=== PATIENT | male | born 1940 | race Two or more races ===

== ENCOUNTER → 2016-09-24 | Outpatient (CLI) | payer MEDICARE, MEDICAID ==
[~2016-09-24] MED LIST: AMLO2.5T PO; ASPI-51 PO; BENA20TA PO; CHOL20009 PO; CILO100T PO; FLUT500M2 IN; SIMV40TA96 PO; TAMS0.4C36 PO
== END | disposition home or self-care (01) ==
LOC: Rad HDHVI 09:49
PROVIDERS: ATTEND Internal Medicine Cardiovascular Disease
DX: I50.9 Heart failure, unspecified (principal); I34.2 Nonrheumatic mitral (valve) stenosis; I35.0 Nonrheumatic aortic (valve) stenosis; I34.0 Nonrheumatic mitral (valve) insufficiency; I07.1 Rheumatic tricuspid insufficiency
CPT/HCPCS: 93306

== ENCOUNTER → 2016-10-02 | Outpatient (CLI) | payer MEDICARE, MEDICAID | END | disposition home or self-care (01) | LOC: Rad HDHVI 09:05 | PROVIDERS: ATTEND Internal Medicine Cardiovascular Disease | DX: I11.0 Hypertensive heart disease with heart failure (principal); I35.0 Nonrheumatic aortic (valve) stenosis; I50.9 Heart failure, unspecified; R06.01 Orthopnea | CPT/HCPCS: 93880 ==

== ENCOUNTER → 2016-12-10 | Outpatient (CLI) | payer MEDICARE, MEDICAID ==
[2016-12-10 16:04] LABS: Urine Bilirubin Negative (Negative); Urine Blood Negative /uL (Negative); Urine Color Yellow (Yellow); Urine Glucose Normal (Normal); Urine Ketone Negative (Negative); Urine Nitrite Negative (Negative); Urine Urobilinogen Normal (Negative)
[2016-12-10 16:30] LABS: Albumin 3.9 g/dL (3.4-5.0); BUN/Creatinine Ratio 14.3; Bilirubin, Direct 0.2 mg/dL (0-0.2); Bilirubin, Total 0.7 mg/dL (0.2-1.0); Calcium 9.1 mg/dL (8.5-10.1); Potassium 4.1 mmol/L (3.5-5.1); Total Protein 8.5 g/dL (6.4-8.2)
[2016-12-10 16:32] LABS: Basophils # (auto) 0 uL; Basophils % (auto) 0.5 % (0.0-2.0); Eosinophils # (auto) 0.2 uL; Eosinophils % (auto) 2.9 % (0.0-7.0); Hematocrit 45.6 % (41.0-53.0); Lymphocytes # (auto) 1.4 uL; Lymphocytes % (auto) 20.9 % (10.0-50.0); Mean Corpuscular Hemoglobin 32.1 pg (28.0-32.0); Mean Corpuscular Volume 97.3 fL (80.0-100.0); Mean Platelet Volume 8.3 fL (7.4-10.4); Monocytes # (auto) 0.4 uL; Monocytes % (auto) 6.6 % (0.0-12.0); Neutrophils # (auto) 4.5 uL; Neutrophils % (auto) 69.1 % (37.0-80.0); Platelet Count (auto) 212 10^3/uL (140-450); Red Cell Distribution Width 14.1 % (11.6-16.0); White Blood Cell 6.5 10^3/uL (4.4-10.8)
== END | disposition home or self-care (01) ==
LOC: LAB 10:46
PROVIDERS: ATTEND Internal Medicine Cardiovascular Disease
DX: E78.00 Pure hypercholesterolemia, unspecified (principal); D64.9 Anemia, unspecified; I10 Essential (primary) hypertension; E03.9 Hypothyroidism, unspecified; E55.9 Vitamin D deficiency, unspecified; R53.81 Other malaise; R97.20 Elevated prostate specific antigen [PSA]; K74.1 Hepatic sclerosis; E11.9 Type 2 diabetes mellitus without complications; N39.0 Urinary tract infection, site not specified
CPT/HCPCS: 36415; 80048; 80061; 80076; 81003; 82306; 83036; 84153; 84403; 84443; 85025

== ENCOUNTER → 2016-12-16 | Outpatient (CLI) | payer MEDICARE, MEDICAID ==
[~2016-12-16] MED LIST changes: +IOHEXOL 350 MG/ML 100ML IJ ONE
[2016-12-16 09:05] VITALS: BP 148/69
[2016-12-16 09:35] VITALS: BP 147/63
== END | disposition home or self-care (01) ==
LOC: Rad HDHVI 08:37
PROVIDERS: ATTEND Internal Medicine Cardiovascular Disease
DX: I70.201 Unspecified atherosclerosis of native arteries of extremities, right leg (principal); K86.89 Other specified diseases of pancreas; K42.9 Umbilical hernia without obstruction or gangrene; K57.30 Diverticulosis of large intestine without perforation or abscess without bleeding; I71.4 Abdominal aortic aneurysm, without rupture; K44.9 Diaphragmatic hernia without obstruction or gangrene; Z90.89 Acquired absence of other organs
CPT/HCPCS: 75635; 96374; G0463; Q9967

== ENCOUNTER → 2017-01-20 | Outpatient (CLI) | payer MEDICARE, MEDICAID ==
[~2017-01-20] VITALS: Ht 157.5 cm; Wt 76.7 kg
[~2017-01-20] MED LIST changes: +ADENOSINE 64 MG in GIVE UN-DILUTED 0 ML IV ONE; +ADENOSINE 90 MG/30 ML INJ IV ONE; -IOHEXOL 350 MG/ML 100ML IJ ONE
[2017-01-20 12:50] LABS: Basophils # (auto) 0 uL; Basophils % (auto) 0.4 % (0.0-2.0); Eosinophils # (auto) 0.3 uL; Eosinophils % (auto) 4.1 % (0.0-7.0); Hematocrit 41.3 % (41.0-53.0); Hemoglobin 13.7 g/dL (13.5-17.5); Lymphocytes # (auto) 1.6 uL; Lymphocytes % (auto) 20.3 % (10.0-50.0); Mean Corpuscular Hemoglobin 32.9 pg (28.0-32.0); Mean Corpuscular Hgb Conc. 33.1 g/dL (32.0-36.0); Mean Corpuscular Volume 99.4 fL (80.0-100.0); Mean Platelet Volume 7.8 fL (7.4-10.4); Monocytes # (auto) 0.6 uL; Monocytes % (auto) 7.5 % (0.0-12.0); Neutrophils # (auto) 5.3 uL; Neutrophils % (auto) 67.7 % (37.0-80.0); Platelet Count (auto) 285 10^3/uL (140-450); Red Cell Distribution Width 14.4 % (11.6-16.0); White Blood Cell 7.9 10^3/uL (4.4-10.8)
[2017-01-20 13:16] LABS: Urine Bilirubin Negative (Negative); Urine Blood Negative /uL (Negative); Urine Color Yellow (Yellow); Urine Glucose Normal (Normal); Urine Ketone Negative (Negative); Urine Nitrite Negative (Negative); Urine Urobilinogen Normal (Negative)
[2017-01-20 13:18] LABS: Albumin 3.4 g/dL (3.4-5.0); BUN/Creatinine Ratio 14.2; Bilirubin, Direct 0.1 mg/dL (0-0.2); Bilirubin, Total 0.6 mg/dL (0.2-1.0); Calcium 8.8 mg/dL (8.5-10.1); Potassium 4.1 mmol/L (3.5-5.1); Total Protein 7.1 g/dL (6.4-8.2)
== END | disposition home or self-care (01) ==
LOC: Rad HDHVI 07:39
PROVIDERS: ATTEND Internal Medicine Cardiovascular Disease
DX: I10 Essential (primary) hypertension (principal); E78.00 Pure hypercholesterolemia, unspecified; K74.1 Hepatic sclerosis; E11.9 Type 2 diabetes mellitus without complications; R97.20 Elevated prostate specific antigen [PSA]; R53.81 Other malaise; E03.9 Hypothyroidism, unspecified; D64.9 Anemia, unspecified; E55.9 Vitamin D deficiency, unspecified; N39.0 Urinary tract infection, site not specified
CPT/HCPCS: 36415; 78452; 80048; 80061; 80076; 81003; 82306; 83036; 84153; 84403; 84443; 85025; 93005; 96374; 96375; J0153

== ENCOUNTER → 2017-02-24 | Outpatient (CLI) | payer MEDICARE, MEDICAID ==
[~2017-02-24] MED LIST changes: -ADENOSINE 64 MG in GIVE UN-DILUTED 0 ML IV ONE; -ADENOSINE 90 MG/30 ML INJ IV ONE
[2017-02-24 16:21] LABS: Basophils # (auto) 0 uL; Basophils % (auto) 0.3 % (0.0-2.0); CONDITION Y; Eosinophils # (auto) 0.2 uL; Eosinophils % (auto) 1.2 % (0.0-7.0); Hematocrit 42.5 % (41.0-53.0); Hemoglobin 14.6 g/dL (13.5-17.5); Lymphocytes # (auto) 1.9 uL; Lymphocytes % (auto) 14.2 % (10.0-50.0); Mean Corpuscular Hemoglobin 34.1 pg (28.0-32.0); Mean Corpuscular Hgb Conc. 34.5 g/dL (32.0-36.0); Mean Corpuscular Volume 98.8 fL (80.0-100.0); Mean Platelet Volume 8.1 fL (7.4-10.4); Monocytes # (auto) 1.2 uL; Monocytes % (auto) 8.9 % (0.0-12.0); Neutrophils # (auto) 10.3 uL; Neutrophils % (auto) 75.4 % (37.0-80.0); Platelet Count (auto) 228 10^3/uL (140-450); Red Cell Distribution Width 14.6 % (11.6-16.0); White Blood Cell 13.7 10^3/uL (4.4-10.8)
[2017-02-24 16:52] LABS: Calcium 8.9 mg/dL (8.5-10.1); Potassium 4.9 mmol/L (3.5-5.1)
== END | disposition home or self-care (01) ==
LOC: LAB 12:02
PROVIDERS: ATTEND Internal Medicine Cardiovascular Disease
DX: I10 Essential (primary) hypertension (principal); I25.10 Atherosclerotic heart disease of native coronary artery without angina pectoris; D64.9 Anemia, unspecified; N39.0 Urinary tract infection, site not specified; R07.0 Pain in throat; R79.82 Elevated C-reactive protein (CRP)
CPT/HCPCS: 36415; 80048; 85025; 86141; 87070; 87086

== ENCOUNTER → 2017-04-15 | Outpatient (CLI) | payer MEDICARE, MEDICAID ==
[2017-04-15 16:57] LABS: BUN/Creatinine Ratio 18.4; Calcium 8.7 mg/dL (8.5-10.1); Potassium 4.5 mmol/L (3.5-5.1)
== END | disposition home or self-care (01) ==
LOC: Rad HDHVI 10:20
PROVIDERS: ATTEND Internal Medicine Cardiovascular Disease
DX: I10 Essential (primary) hypertension (principal); I49.5 Sick sinus syndrome
CPT/HCPCS: 36415; 80048; 93880

== ENCOUNTER → 2017-05-08 | Outpatient (CLI) | payer MEDICARE, MEDICAID ==
[~2017-05-08] MED LIST changes: +IOHEXOL 350 MG/ML 100ML IJ ONE
[2017-05-08 08:45] VITALS: BP 133/61
[2017-05-08 09:20] VITALS: BP 135/60
== END ==
LOC: Rad HDHVI 08:32
PROVIDERS: ATTEND Internal Medicine Cardiovascular Disease
DX: I71.4 Abdominal aortic aneurysm, without rupture (principal)
CPT/HCPCS: 82565; 96374; G0463; Q9967

== ENCOUNTER → 2017-10-09 | Outpatient (CLI) | payer MEDICARE, MEDICAID ==
[~2017-10-09] MED LIST changes: +ADENOSINE 64 MG in GIVE UN-DILUTED 0 ML IV ONE; +ADENOSINE 90 MG/30 ML INJ IV ONE; -IOHEXOL 350 MG/ML 100ML IJ ONE
[2017-10-09 12:34] LABS: Basophils # (auto) 0 uL; Basophils % (auto) 0.7 % (0.0-2.0); Eosinophils # (auto) 0.2 uL; Eosinophils % (auto) 3.2 % (0.0-7.0); Hematocrit 42.5 % (41.0-53.0); Hemoglobin 14.1 g/dL (13.5-17.5); Lymphocytes # (auto) 1.4 uL; Lymphocytes % (auto) 22.1 % (10.0-50.0); Mean Corpuscular Hemoglobin 32.1 pg (28.0-32.0); Mean Corpuscular Hgb Conc. 33.3 g/dL (32.0-36.0); Mean Corpuscular Volume 96.6 fL (80.0-100.0); Monocytes # (auto) 0.7 uL; Monocytes % (auto) 10.2 % (0.0-12.0); Neutrophils # (auto) 4.1 uL; Neutrophils % (auto) 63.8 % (37.0-80.0); Nucleated Red Blood Cells % 0.8 %; Platelet Count (auto) 191 10^3/uL (140-450); Red Cell Distribution Width 13.2 % (11.8-14.3); White Blood Cell 6.4 10^3/uL (4.4-10.8)
[2017-10-09 12:44] LABS: Urine Blood Negative /uL (Negative); Urine Specific Gravity 1.018 (1.001-1.035)
[2017-10-09 13:35] LABS: Albumin 3.5 g/dL (3.4-5.0); BUN/Creatinine Ratio 16.1; Bilirubin, Total 0.6 mg/dL (0.2-1.0); Calcium 9.2 mg/dL (8.5-10.1); Potassium 4.3 mmol/L (3.5-5.1); Total Protein 7.8 g/dL (6.4-8.2)
[2017-10-09 20:26] LABS: Free T4 (Free Thyroxine) 1.01 ng/dL (0.89-1.76)
== END | disposition home or self-care (01) ==
LOC: Rad HDHVI 07:56
PROVIDERS: ATTEND Internal Medicine Cardiovascular Disease
DX: I25.10 Atherosclerotic heart disease of native coronary artery without angina pectoris (principal); I71.4 Abdominal aortic aneurysm, without rupture; I10 Essential (primary) hypertension; E78.5 Hyperlipidemia, unspecified; E78.00 Pure hypercholesterolemia, unspecified; D64.9 Anemia, unspecified; E11.9 Type 2 diabetes mellitus without complications; E03.9 Hypothyroidism, unspecified; E55.9 Vitamin D deficiency, unspecified; D51.9 Vitamin B12 deficiency anemia, unspecified; N39.0 Urinary tract infection, site not specified; R53.81 Other malaise; R97.20 Elevated prostate specific antigen [PSA]; Z79.899 Other long term (current) drug therapy
CPT/HCPCS: 36415; 78452; 80053; 80061; 81003; 82306; 82607; 83036; 84403; 84439; 84443; 85025; 93005; 96374; 96375; A9500; J0153

== ENCOUNTER → 2017-10-13 | Outpatient (CLI) | payer MEDICARE, MEDICAID ==
[~2017-10-13] MED LIST changes: -ADENOSINE 64 MG in GIVE UN-DILUTED 0 ML IV ONE; -ADENOSINE 90 MG/30 ML INJ IV ONE
== END | disposition home or self-care (01) ==
LOC: Rad HDHVI 12:48
PROVIDERS: ATTEND Internal Medicine Cardiovascular Disease
DX: I08.0 Rheumatic disorders of both mitral and aortic valves (principal); I25.10 Atherosclerotic heart disease of native coronary artery without angina pectoris; I10 Essential (primary) hypertension
CPT/HCPCS: 93306

== ENCOUNTER → 2018-03-31 | Outpatient (CLI) | payer MEDICARE, MEDICAID ==
[~2018-03-31] MED LIST changes: +CLOP75TA28 PO
[2018-03-31 08:50] VITALS: BP 115/63
[2018-03-31 09:25] VITALS: BP 120/63
[2018-03-31 11:53] LABS: Basophils # (auto) 0 uL; Basophils % (auto) 0.7 % (0.0-2.0); Eosinophils # (auto) 0.2 uL; Eosinophils % (auto) 2.9 % (0.0-7.0); Hematocrit 40.3 % (41.0-53.0); Hemoglobin 13.5 g/dL (13.5-17.5); Lymphocytes # (auto) 1.4 uL; Lymphocytes % (auto) 22.6 % (10.0-50.0); Mean Corpuscular Hemoglobin 32.6 pg (28.0-32.0); Mean Corpuscular Hgb Conc. 33.4 g/dL (32.0-36.0); Mean Corpuscular Volume 97.8 fL (80.0-100.0); Monocytes # (auto) 0.5 uL; Monocytes % (auto) 8.3 % (0.0-12.0); Neutrophils # (auto) 4.1 uL; Neutrophils % (auto) 65.5 % (37.0-80.0); Platelet Count (auto) 186 10^3/uL (140-450); Red Blood Cells 4.12 10^6/uL (4.5-5.90); Red Cell Distribution Width 13.8 % (11.8-14.3); White Blood Cell 6.3 10^3/uL (4.4-10.8)
[2018-03-31 12:14] LABS: BUN/Creatinine Ratio 20.3; Calcium 8.6 mg/dL (8.5-10.1); Potassium 4.2 mmol/L (3.5-5.1)
[2018-03-31 12:51] LABS: INR 1.01 (0.9-1.15); Partial Thromboplastin Time 31.6 sec (23.78-33.04); Prothrombin Time 10.8 sec (9.27-12.13)
== END | disposition home or self-care (01) ==
LOC: CHF HDHVI 08:30
PROVIDERS: ATTEND Internal Medicine
DX: I71.4 Abdominal aortic aneurysm, without rupture (principal); J44.9 Chronic obstructive pulmonary disease, unspecified
CPT/HCPCS: 36415; 80048; 85025; 85610; 85730; 86850; 86900; 86901; 93005; G0463

== ENCOUNTER 2018-04-03 10:56 | Inpatient (IN) | payer MEDICARE, MEDICAID ==
[~2018-04-03] VITALS: Ht 170.2 cm; Wt 73.0 kg
[2018-04-03] VITALS (18 sets, daily range): BP systolic 94–129; BP diastolic 38–60
[~2018-04-03 10:56] MED LIST changes: -CLOP75TA28 PO
[2018-04-03] MEDS ORDERED: LIDOCAINE 2%HCL (LOCAL ANESTH.) INJ 10ml MDV ONE (12:28)
[2018-04-03] MEDS ORDERED: IODIXANOL 320MG/ML 100ML BTL IV ONE (12:28)
[2018-04-03] MEDS ORDERED: ANGIOMAX 250 MG VIAL IV ONE (15:04)
[2018-04-03] MEDS ORDERED: PHENYLEPHRINE HCL 10 MG/ML VL ONE (15:04)
[2018-04-03] MEDS ORDERED: fentaNYL CITRATE 100 MCG/2 ML VL ONE (15:05)
[2018-04-03] MEDS ORDERED: MIDAZOLAM HCL 1MG/1ML-2 ML VIAL ONE (15:05)
[2018-04-03] MEDS ORDERED: ATROPINE SULF 1 MG/10ml SYR ONE (15:05)
[2018-04-03] MEDS ORDERED: SODIUM CHL 0.9% 50 ML ONE (15:05)
[2018-04-03] MEDS ORDERED: DOPamine 3200MCG/ML 250 ML IV ONE (15:15)
[2018-04-03] MEDS ORDERED: LIDOCAINE 2% (LOCAL ANESTH.) PF 5ml SDV ONE (15:20)
[2018-04-03] MEDS ORDERED: HEPARIN SODIUM (PORCINE) 5000 UNITS/ML 1ML VIAL ONE ×2 (15:29→15:50)
[2018-04-03] MEDS ORDERED: ACETAMINOPHEN 500 MG TAB PO PRN (17:15)
[2018-04-03] MEDS ORDERED: LORazepam 0.5 MG TAB PO PRN (17:15)
[2018-04-03] MEDS ORDERED: MORPHINE SULF INJ 2 MG/ML SYRINGE 1ML IV PRN (17:15)
[2018-04-03] MEDS ORDERED: HYDROcodone-ACET 5/325MG TAB PO PRN (17:15)
[2018-04-03] MEDS ORDERED: NITROGLYCERIN 0.4 MG SL TAB SL PRN (17:15)
[2018-04-03] MEDS ORDERED: ONDANSETRON HCL 4 MG/2 ML VIAL IV PRN (17:15)
[2018-04-03] MEDS ORDERED: ZOLPIDEM TARTRATE 5 MG TAB PO PRN (17:15)
[2018-04-03] MEDS: CHOLECALCIFEROL (VITD3) 1,000 UNIT TAB PO SCH (17:30)
[2018-04-03] MEDS: BENAZEPRIL HCL 10 MG TAB PO SCH (17:30)
[2018-04-03] MEDS ORDERED: CLOPIDOGREL BISULFATE 75 MG TAB PO ONE ×2 (17:30→17:45)
[2018-04-03] MEDS ORDERED: CHOLECALCIFEROL (VITD3) 1,000 UNIT TAB PO ONE (17:45)
[2018-04-03] MEDS ORDERED: BENAZEPRIL HCL 10 MG TAB PO ONE (17:45)
[2018-04-03] MEDS ORDERED: ASPirin-EC 325mg tab PO ONE (17:45)
[2018-04-03] MEDS ORDERED: CILOSTAZOL 100 MG TAB PO ONE (17:45)
[2018-04-03] MEDS ORDERED: TAMSULOSIN HYDROCHLORIDE 0.4 MG CAP PO ONE (17:45)
[2018-04-03] MEDS ORDERED: amLODIPine BESYLATE 5 MG TAB PO ONE (17:45)
[2018-04-03] MEDS: CILOSTAZOL 100 MG TAB PO SCH (22:00)
[2018-04-03] MEDS: SODIUM CHLOR 0.9% PF (SALINE LOCK) 10ML VIAL/SYR IV SCH (22:00)
[2018-04-03] MEDS ORDERED: ATORVASTATIN 20 MG TAB PO SCH (22:00)
[2018-04-04] VITALS (28 sets, daily range): BP systolic 89–127; BP diastolic 33–56
[2018-04-04] MEDS: ALBUTEROL SULF 2.5 MG/0.5ML(0.5%) NEB SOLN NEB SCH ×3 (00:41→12:24)
[2018-04-04] MEDS: BUDESONIDE (INHALATION) 0.5 MG/2 ML NEB NEB SCH ×2 (00:41→06:05)
[2018-04-04 08:27] LABS: Basophils # (auto) 0 uL; Basophils % (auto) 0.3 % (0.0-2.0); Eosinophils # (auto) 0.1 uL; Hematocrit 34.2 % (41.0-53.0); Hemoglobin 11.5 g/dL (13.5-17.5); Lymphocytes % (auto) 13.5 % (10.0-50.0); Mean Corpuscular Hemoglobin 32.9 pg (28.0-32.0); Mean Corpuscular Hgb Conc. 33.5 g/dL (32.0-36.0); Mean Corpuscular Volume 98.2 fL (80.0-100.0); Monocytes # (auto) 0.8 uL; Monocytes % (auto) 10.4 % (0.0-12.0); Neutrophils # (auto) 5.4 uL; Neutrophils % (auto) 74.8 % (37.0-80.0); Nucleated Red Blood Cells % 0.1 %; Platelet Count (auto) 140 10^3/uL (140-450); Red Blood Cells 3.48 10^6/uL (4.5-5.90); Red Cell Distribution Width 14.2 % (11.8-14.3); White Blood Cell 7.2 10^3/uL (4.4-10.8)
[2018-04-04] MEDS ORDERED: ASPirin-EC 325mg tab PO SCH (10:00)
[2018-04-04] MEDS ORDERED: CLOPIDOGREL BISULFATE 75 MG TAB PO SCH (10:00)
[2018-04-04] MEDS ORDERED: TAMSULOSIN HYDROCHLORIDE 0.4 MG CAP PO SCH (10:00)
[2018-04-04] MEDS ORDERED: amLODIPine BESYLATE 5 MG TAB PO SCH (10:00)
[2018-04-04] MEDS: BENAZEPRIL HCL 10 MG TAB PO SCH (10:00)
[2018-04-04] MEDS: SODIUM CHLOR 0.9% PF (SALINE LOCK) 10ML VIAL/SYR IV SCH ×2 (10:12→14:28)
[2018-04-04] MEDS: CILOSTAZOL 100 MG TAB PO SCH (10:20)
[2018-04-04] MEDS: CHOLECALCIFEROL (VITD3) 1,000 UNIT TAB PO SCH (10:20)
[2018-04-04] MEDS ORDERED: ASPirin 81 mg TAB PO SCH (11:00)
[2018-04-04] MEDS ORDERED: CLOP75TA28 PO ×2 (11:59→12:00)
== END 2018-04-04 15:05 | disposition home or self-care (01) | DRG 269 ==
LOC: CATH 10:56 → ICU WEST 17:06
PROVIDERS: ADMIT Internal Medicine Cardiovascular Disease; ATTEND Internal Medicine Cardiovascular Disease
PROC: 04V03D6 (ICD-10-PCS; principal; 2018-04-03)
PROC: 04VC3DZ Restriction of Right Common Iliac Artery with Intraluminal Device, Percutaneous Approach (ICD-10-PCS; 2018-04-03)
PROC: 04VD3DZ Restriction of Left Common Iliac Artery with Intraluminal Device, Percutaneous Approach (ICD-10-PCS; 2018-04-03)
DX: I71.4 Abdominal aortic aneurysm, without rupture (principal); E78.5 Hyperlipidemia, unspecified; I73.9 Peripheral vascular disease, unspecified; I25.10 Atherosclerotic heart disease of native coronary artery without angina pectoris; I10 Essential (primary) hypertension; I70.90 Unspecified atherosclerosis; J44.9 Chronic obstructive pulmonary disease, unspecified; Z87.891 Personal history of nicotine dependence; Z95.1 Presence of aortocoronary bypass graft
CPT/HCPCS: 36415; 85025; 86850; 86900; 86901; 86920; 87081; 94640; 99152; A6257; J1265; J2001; J2250; Q9967

== ENCOUNTER → 2018-07-14 | Outpatient (CLI) | payer MEDICARE, MEDICAID ==
[~2018-07-14] MED LIST changes: -AMLO2.5T PO; +AMLO2.5T6 PO; +CLOP75TA28 PO; +IOHEXOL 350 MG/ML 100ML IJ ONE
[2018-07-14 08:57] VITALS: BP 126/59
[2018-07-14 09:35] VITALS: BP 122/61
== END | disposition home or self-care (01) ==
LOC: Rad HDHVI 08:46
PROVIDERS: ATTEND Internal Medicine
DX: I77.4 Celiac artery compression syndrome (principal); I71.4 Abdominal aortic aneurysm, without rupture; Z95.828 Presence of other vascular implants and grafts; R10.30 Lower abdominal pain, unspecified; I70.208 Unspecified atherosclerosis of native arteries of extremities, other extremity
CPT/HCPCS: 71275; 82565; G0463; Q9967

== ENCOUNTER → 2018-08-13 | Outpatient (CLI) | payer MEDICARE, MEDICAID ==
[~2018-08-13] MED LIST changes: -IOHEXOL 350 MG/ML 100ML IJ ONE
[2018-08-13 12:31] LABS: Urine Blood Negative /uL (Negative); Urine Specific Gravity 1.018 (1.001-1.035)
[2018-08-13 12:38] LABS: Basophils # (auto) 0 uL; Basophils % (auto) 0.4 % (0.0-2.0); Eosinophils # (auto) 0.3 uL; Eosinophils % (auto) 3.7 % (0.0-7.0); Hematocrit 42.8 % (41.0-53.0); Hemoglobin 14.2 g/dL (13.5-17.5); Lymphocytes # (auto) 1.9 uL; Lymphocytes % (auto) 27.4 % (10.0-50.0); Mean Corpuscular Hemoglobin 32.9 pg (28.0-32.0); Mean Corpuscular Hgb Conc. 33.1 g/dL (32.0-36.0); Mean Corpuscular Volume 99.3 fL (80.0-100.0); Monocytes # (auto) 0.7 uL; Monocytes % (auto) 9.8 % (0.0-12.0); Neutrophils % (auto) 58.7 % (37.0-80.0); Nucleated Red Blood Cells % 0.1 %; Platelet Count (auto) 178 10^3/uL (140-450); Red Blood Cells 4.31 10^6/uL (4.5-5.90); Red Cell Distribution Width 14.3 % (11.8-14.3); White Blood Cell 6.9 10^3/uL (4.4-10.8)
[2018-08-13 13:23] LABS: Potassium 4.5 mmol/L (3.5-5.1)
[2018-08-13 13:31] LABS: Free T4 (Free Thyroxine) 0.96 ng/dL (0.89-1.76); Prostate Specific Antigen 1.85 ng/mL (0.0-4.0)
[2018-08-13 13:42] LABS: Albumin 3.5 g/dL (3.4-5.0); BUN/Creatinine Ratio 17.2; Bilirubin, Total 0.7 mg/dL (0.2-1.0); Calcium 8.7 mg/dL (8.5-10.1); Total Protein 8.1 g/dL (6.4-8.2)
== END | disposition home or self-care (01) ==
LOC: LAB 08:48
PROVIDERS: ATTEND Internal Medicine Cardiovascular Disease
DX: E78.5 Hyperlipidemia, unspecified (principal); E03.9 Hypothyroidism, unspecified; E11.9 Type 2 diabetes mellitus without complications; E55.9 Vitamin D deficiency, unspecified; C61 Malignant neoplasm of prostate; D51.9 Vitamin B12 deficiency anemia, unspecified; D64.9 Anemia, unspecified; N39.0 Urinary tract infection, site not specified
CPT/HCPCS: 36415; 80053; 80061; 81003; 82306; 82607; 83036; 84153; 84403; 84439; 84443; 85025

== ENCOUNTER → 2018-08-14 | Outpatient (CLI) | payer MEDICARE, MEDICAID | END | disposition home or self-care (01) | LOC: Rad HDHVI 08:59 | PROVIDERS: ATTEND Internal Medicine | DX: M47.812 Spondylosis without myelopathy or radiculopathy, cervical region (principal); M19.011 Primary osteoarthritis, right shoulder | CPT/HCPCS: 72040; 73030 ==

== ENCOUNTER → 2019-03-08 | Outpatient (CLI) | payer MEDICARE, MEDICAID ==
[~2019-03-08] MED LIST changes: -AMLO2.5T6 PO; +AMLO2.5T7 PO
[2019-03-08 12:06] LABS: Urine Blood Negative /uL (Negative)
[2019-03-08 12:08] LABS: Basophils # (auto) 0.1 uL; Basophils % (auto) 0.8 % (0.0-2.0); Eosinophils # (auto) 0.2 uL; Eosinophils % (auto) 3.4 % (0.0-7.0); Hematocrit 41.6 % (41.0-53.0); Hemoglobin 13.9 g/dL (13.5-17.5); Lymphocytes # (auto) 1.8 uL; Mean Corpuscular Hgb Conc. 33.4 g/dL (32.0-36.0); Mean Corpuscular Volume 102.1 fL (80.0-100.0); Monocytes # (auto) 0.6 uL; Monocytes % (auto) 9.3 % (0.0-12.0); Neutrophils % (auto) 59.5 % (37.0-80.0); Nucleated Red Blood Cells % 0.2 %; Platelet Count (auto) 170 10^3/uL (140-450); Red Blood Cells 4.08 10^6/uL (4.5-5.90); White Blood Cell 6.8 10^3/uL (4.4-10.8)
[2019-03-08 12:23] LABS: Free T4 (Free Thyroxine) 0.8 ng/dL (0.89-1.76)
[2019-03-08 12:24] LABS: Prostate Specific Antigen 1.44 ng/mL (0.0-4.0)
[2019-03-08 12:28] LABS: Potassium 4.6 mmol/L (3.5-5.1)
[2019-03-08 12:52] LABS: Albumin 3.4 g/dL (3.4-5.0); BUN/Creatinine Ratio 19.4; Bilirubin, Total 0.7 mg/dL (0.2-1.0); Calcium 8.9 mg/dL (8.5-10.1); Total Protein 8.2 g/dL (6.4-8.2)
== END | disposition home or self-care (01) ==
LOC: Rad HDHVI 08:07
PROVIDERS: ATTEND Internal Medicine
DX: I08.2 Rheumatic disorders of both aortic and tricuspid valves (principal); E03.9 Hypothyroidism, unspecified; E55.9 Vitamin D deficiency, unspecified; C61 Malignant neoplasm of prostate; E29.1 Testicular hypofunction; N39.0 Urinary tract infection, site not specified; D51.9 Vitamin B12 deficiency anemia, unspecified; R09.89 Other specified symptoms and signs involving the circulatory and respiratory systems; I10 Essential (primary) hypertension; Z79.899 Other long term (current) drug therapy
CPT/HCPCS: 36415; 80053; 80061; 81003; 82306; 82607; 83036; 84153; 84403; 84439; 84443; 85025; 93306; 93880

== ENCOUNTER → 2019-06-22 | Outpatient (CLI) | payer MEDICARE, MEDICAID ==
[~2019-06-22] MED LIST changes: +IOHEXOL 350 MG/ML 100ML IJ ONE
[2019-06-22 11:45] VITALS: BP 131/59
[2019-06-22 13:55] VITALS: BP 133/56
--- NOTE | 2019-06-22 13:55 | NUR ---
[facility] Discharge Instructions See e-MAR for any mediations given with this visit. Patient education given on disease process. Patient verbalized understanding. Previous labs reviewed. Patient discharged in stable condition with after care instructions and follow up appointment. NOTE PATIENT EDUCATED TO DRINK PLENTY OF FLUIDS OVER THE NEXT 24 HRS, PATIENT VERBALIZED UNDERSTANDING.
== END | disposition home or self-care (01) ==
LOC: Rad HDHVI 11:31
PROVIDERS: ATTEND Internal Medicine
DX: R91.1 Solitary pulmonary nodule (principal); R94.4 Abnormal results of kidney function studies; R05 Cough
CPT/HCPCS: 36415; 71260; 82565; 87070; 87077; 87186; 87205; G0463; Q9967

== ENCOUNTER → 2019-09-16 | Outpatient (CLI) | payer MEDICARE, MEDICAID ==
[~2019-09-16] MED LIST changes: -IOHEXOL 350 MG/ML 100ML IJ ONE
== END | disposition home or self-care (01) ==
LOC: LAB 11:06
PROVIDERS: ATTEND Internal Medicine
DX: R94.4 Abnormal results of kidney function studies (principal)
CPT/HCPCS: 36415; 82565

== ENCOUNTER → 2019-09-17 | Outpatient (CLI) | payer MEDICARE, MEDICAID ==
[~2019-09-17] MED LIST changes: +IOHEXOL 350 MG/ML 100ML IJ ONE
[2019-09-17 08:10] VITALS: BP 123/54
--- NOTE | 2019-09-17 08:25 | NUR ---
IV insertion IV access obtained, via clean sterile technique by inserting [20] gauge catheter at [LEFT AC] after [1] attempt(s). IV secured properly. No trauma to site. Patient tolerated procedure well.
--- NOTE | 2019-09-17 09:30 | NUR ---
IV removal IV DC'd BY ROXANNE GARNETT with sterile technique, catheter fully intact. Pressure dressing applied to site. Patient tolerated procedure well.
[2019-09-17 09:35] VITALS: BP 127/46
--- NOTE | 2019-09-17 09:35 | NUR ---
[facility] Discharge Instructions See e-MAR for any mediations given with this visit. Patient education given on disease process. Patient verbalized understanding. Previous labs reviewed. Patient discharged in stable condition with after care instructions and follow up appointment. NOTES PT TOLERATED PROCEDURE/TEST WELL. PT EDUCATED INCREASE ORAL HYDRATION OVER THE NEXT 24 HOURS. PT VERBALIZED UNDERSTANDING.
== END | disposition home or self-care (01) ==
LOC: Rad HDHVI 08:31
PROVIDERS: ATTEND Internal Medicine
DX: J44.9 Chronic obstructive pulmonary disease, unspecified (principal); Z95.1 Presence of aortocoronary bypass graft
CPT/HCPCS: G0463; Q9967

== ENCOUNTER → 2019-09-27 | Outpatient (CLI) | payer MEDICARE, MEDICAID ==
[~2019-09-27] MED LIST changes: -IOHEXOL 350 MG/ML 100ML IJ ONE
== END | disposition home or self-care (01) ==
LOC: Rad HDHVI 09:37
PROVIDERS: ATTEND Internal Medicine Cardiovascular Disease
DX: I25.10 Atherosclerotic heart disease of native coronary artery without angina pectoris (principal); I10 Essential (primary) hypertension; R09.89 Other specified symptoms and signs involving the circulatory and respiratory systems
CPT/HCPCS: 93880

== ENCOUNTER 2019-11-27 09:55 | Inpatient (IN) | payer MEDICARE, MEDICAID ==
[~2019-11-27] VITALS: Ht 170.2 cm; Wt 77.0 kg
[2019-11-27] VITALS (19 sets, daily range): BP systolic 66–128; BP diastolic 30–71
[2019-11-27] MEDS ORDERED: SODIUM CHLORIDE 0.9% 1,000 ML IV ONE (10:33)
[2019-11-27] MEDS ORDERED: SODIUM CHLORIDE 0.9% 1,000 ML IVB ONE (10:33)
[2019-11-27] MEDS ORDERED: ALBUTEROL SULF 2.5 MG/0.5ML(0.5%) NEB SOLN NEB ONE (11:30)
[2019-11-27] MEDS ORDERED: IPRATROPIUM BROM 0.5 MG/2.5ML INH SOL NEB ONE (11:30)
[2019-11-27] MEDS ORDERED: cefTRIAXone 1GM/50ML D5W 50 ML IV ONE (11:45)
[2019-11-27] MEDS ORDERED: AZITHROMYCIN 500MG/ 250ML 250 ML IV ONE (11:45)
[2019-11-27] MEDS ORDERED: ACETAMINOPHEN 500 MG TAB PO ONE (12:00)
[2019-11-27 12:43] LABS: Basophils # (auto) 0 10 ^3/uL (0-0.2); Basophils % (auto) 0.1 % (0.0-2.0); Eosinophils # (auto) 0 10 ^3/uL (0-0.8); Eosinophils % (auto) 0.9 % (0.0-7.0); Hematocrit 34.4 % (41.0-53.0); Hemoglobin 11.5 g/dL (13.5-17.5); Lymphocytes # (auto) 0.1 10 ^3/uL (0.4-5.4); Lymphocytes % (auto) 39.8 % (10.0-50.0); Mean Corpuscular Hemoglobin 34.3 pg (28.0-32.0); Mean Corpuscular Hgb Conc. 33.5 g/dL (32.0-36.0); Mean Corpuscular Volume 102.5 fL (80.0-100.0); Monocytes # (auto) 0 10 ^3/uL (0-1.3); Monocytes % (auto) 2.9 % (0.0-12.0); Neutrophils # (auto) 0.2 10 ^3/uL (1.6-8.6); Neutrophils % (auto) 56.3 % (37.0-80.0); Nucleated Red Blood Cells % 1.6 %; Platelet Count (auto) 79 10^3/uL (140-450); Red Blood Cells 3.35 10^6/uL (4.5-5.90); Red Cell Distribution Width 13.7 % (11.8-14.3)
[2019-11-27 12:50] LABS: White Blood Cell 0.3 10^3/uL (4.4-10.8)
[2019-11-27 12:52] LABS: Albumin 2.5 g/dL (3.4-5.0); Calcium 6.7 mg/dL (8.5-10.1); Magnesium 1.5 mg/dL (1.6-2.6); Potassium 4.1 mmol/L (3.5-5.1)
[2019-11-27 12:58] LABS: BUN/Creatinine Ratio 19.3; Bilirubin, Total 1.5 mg/dL (0.2-1.0); Total Protein 5.8 g/dL (6.4-8.2)
[2019-11-27 13:09] LABS: INR 1.26 (0.9-1.15); Partial Thromboplastin Time 29.4 sec (23.64-32.05)
[2019-11-27 13:20] LABS: Lactic Acid w/Reflex 3.4 mmol/L (0.4-2.0)
[2019-11-27] MEDS: MAGNESIUM SULFATE 1GM/100ML 100 ML IV SCH ×2 (13:45→14:45)
[2019-11-27] MEDS ORDERED: VANCOMYCIN 1GM/250ML 250 ML IV ONE ×2 (16:00→21:00)
[2019-11-27] MEDS ORDERED: ASCORBIC ACID 500 MG TAB PO SCH (16:07)
[2019-11-27] MEDS ORDERED: CHOLECALCIFEROL (VITD3) 1,000IU=25mCg TAB PO SCH (16:09)
[2019-11-27] MEDS ORDERED: ZINC SULFATE 220mg CAP or TAB PO SCH (16:13)
[2019-11-27] MEDS ORDERED: ALBUTEROL SULF HFA 90MCG INH 200DOSE IN SCH (16:39)
[2019-11-27 16:47] LABS: Urine Bacteria NONE SEEN /hpf (None Seen); Urine Blood 2+ /uL (Negative); Urine Specific Gravity 1.022 (1.001-1.035); Urine WBC 1 /hpf (0 - 3)
[2019-11-27] MEDS ORDERED: ACETAMINOPHEN 650 MG RECT SUPP PR ONE (17:15)
[2019-11-27] MEDS: NOREPINEPHRINE 8 MG/250ML KIT 250 ML IV PRN (17:23)
[2019-11-27] MEDS ORDERED: HYDROmorphone HCL 2 MG/ML VL IV PRN ×2 (19:15)
[2019-11-27] MEDS ORDERED: PIPERACILLIN-TAZO 4.5GM 100 ML IV ONE (20:00)
[2019-11-27] MEDS: PANTOPRAZOLE 40 MG/10 ML VIAL INJ IV SCH (20:20)
[2019-11-27] MEDS ORDERED: SODIUM BICARBONATE 8.4% INJ 50ML SYRINGE ONE (20:51)
[2019-11-27] MEDS ORDERED: SODIUM BICARBONATE 8.4 % INJ 50ML VIAL IV ONE (21:00)
[2019-11-27] MEDS ORDERED: methylPREDNISolone SOD SUCC 40 MG/ML VL IV ONE (21:00)
[2019-11-27] MEDS ORDERED: IPRATROPIUM BROM 0.5 MG/2.5ML INH SOL NEB SCH (22:00)
[2019-11-27] MEDS ORDERED: ALBUTEROL SULF 2.5 MG/0.5ML(0.5%) NEB SOLN NEB SCH (22:00)
[2019-11-27] MEDS: ACETAMINOPHEN 650 MG RECT SUPP PR PRN (22:02)
[2019-11-27] MEDS ORDERED: IPRATROPIUM BROM 0.5 MG/2.5ML INH SOL ONE (22:17)
[2019-11-27] MEDS ORDERED: ALBUTEROL SULF 2.5 MG/0.5ML(0.5%) NEB SOLN ONE (22:17)
[2019-11-28] VITALS (105 sets, daily range): BP systolic 72–129; BP diastolic 30–81
[2019-11-28] MEDS ORDERED: PIPERACILLIN-TAZO 4.5GM 100 ML IV SCH (04:00)
[2019-11-28 05:20] LABS: Basophils # (auto) 0 10 ^3/uL (0-0.2); Basophils % (auto) 0.2 % (0.0-2.0); Eosinophils # (auto) 0 10 ^3/uL (0-0.8); Eosinophils % (auto) 1.2 % (0.0-7.0); Hematocrit 35.3 % (41.0-53.0); Lymphocytes # (auto) 0.1 10 ^3/uL (0.4-5.4); Lymphocytes % (auto) 34.3 % (10.0-50.0); Mean Corpuscular Hemoglobin 34.4 pg (28.0-32.0); Mean Corpuscular Volume 101.4 fL (80.0-100.0); Monocytes # (auto) 0 10 ^3/uL (0-1.3); Monocytes % (auto) 2.5 % (0.0-12.0); Neutrophils # (auto) 0.1 10 ^3/uL (1.6-8.6); Neutrophils % (auto) 61.8 % (37.0-80.0); Platelet Count (auto) 33 10^3/uL (140-450); Red Blood Cells 3.48 10^6/uL (4.5-5.90); Red Cell Distribution Width 13.7 % (11.8-14.3)
[2019-11-28 05:21] LABS: Nucleated Red Blood Cells % 4.3 %
[2019-11-28] MEDS: ACETAMINOPHEN 650 MG RECT SUPP PR PRN (05:22)
[2019-11-28 05:23] LABS: White Blood Cell 0.2 10^3/uL (4.4-10.8)
[2019-11-28 05:45] LABS: BUN/Creatinine Ratio 19.6; Calcium 6.7 mg/dL (8.5-10.1); Magnesium 1.6 mg/dL (1.6-2.6); Potassium 4.2 mmol/L (3.5-5.1)
[2019-11-28 05:48] LABS: Lactic Acid w/Reflex 4.5 mmol/L (0.4-2.0)
[2019-11-28] MEDS: LEVALBUTEROL HCL 1.25 MG/3 ML NEB NEB SCH ×3 (06:22→22:09)
[2019-11-28] MEDS: NOREPINEPHRINE 8 MG/250ML KIT 250 ML IV PRN ×2 (07:00→22:33)
[2019-11-28] MEDS ORDERED: SUCCINYLCHOLINE CHLORIDE 20 MG/ML 10ML VIAL IV ONE (09:30)
[2019-11-28] MEDS ORDERED: ETOMIDATE (2MG/ML) 20ML VIAL IV ONE (09:30)
[2019-11-28] MEDS ORDERED: ROCURONIUM 10MG/ML 10ML VIAL IV ONE (09:35)
[2019-11-28] MEDS ORDERED: MIDAZOLAM DRIP 50 mg/50mL 50 ML IV SCH (09:46)
[2019-11-28] MEDS ORDERED: fentaNYL Drip 2500mCg/250mlNS 250 ML IV SCH (09:46)
[2019-11-28] MEDS ORDERED: MIDAZOLAM DRIP 50 mg/50mL 50 ML IV ONE (09:48)
[2019-11-28] MEDS ORDERED: CHOLECALCIFEROL (VITD3) 1,000IU=25mCg TAB PO SCH ×2 (10:00)
[2019-11-28] MEDS ORDERED: ASCORBIC ACID 500 MG TAB PO SCH (10:00)
[2019-11-28] MEDS: PANTOPRAZOLE 40 MG/10 ML VIAL INJ IV SCH (10:00)
[2019-11-28] MEDS ORDERED: ZINC SULFATE 220mg CAP or TAB PO SCH (10:00)
[2019-11-28] MEDS: SODIUM CHLORIDE 0.9% 1,000 ML IV SCH ×2 (10:30→17:33)
[2019-11-28] MEDS ORDERED: SODIUM CHLORIDE 0.9% 1,000 ML IV ONE (10:30)
[2019-11-28] MEDS: PIPERACILLIN-TAZOB 3.375GM 100 ML IV SCH ×3 (12:00→23:50)
[2019-11-28] MEDS ORDERED: PHENYLEPHRINE IV 250 ML IV ONE (13:09)
[2019-11-28] MEDS: PHENYLEPHRINE IV 250 ML IV SCH ×3 (13:19→23:26)
[2019-11-28] MEDS ORDERED: VASOPRESSIN 50 UNITS in D5W 5% 247.5 ML IV SCH (14:45)
[2019-11-28] MEDS ORDERED: VASOPRESSIN 20 UNIT/ML ONE (14:45)
[2019-11-29] VITALS (39 sets, daily range): BP systolic 50–105; BP diastolic 13–49
[2019-11-29] MEDS: PHENYLEPHRINE IV 250 ML IV SCH (01:19)
[2019-11-29] MEDS ORDERED: methylPREDNISolone SOD SUCC 125 MG/2 ML VL ONE (01:46)
[2019-11-29] MEDS ORDERED: methylPREDNISolone SOD SUCC 125 MG/2 ML VL IV ONE (02:00)
[2019-11-29] MEDS ORDERED: SODIUM CHLORIDE 0.9% 500 ML IV ONE (02:00)
[2019-11-29] MEDS ORDERED: ALBUMIN 25% 100 ML IV ONE ×2 (02:00)
[2019-11-29] MEDS ORDERED: ATROPINE SULF 1 MG/10ml SYR IV ONE ×3 (03:16→11:29)
[2019-11-29] MEDS ORDERED: FUROSEMIDE 20 MG/2 ML VIAL ONE (03:35)
[2019-11-29] MEDS ORDERED: DOPamine 1600MCG/ML D5W 250 ML IV SCH ×2 (03:37→03:40)
[2019-11-29] MEDS ORDERED: FUROSEMIDE 20 MG/2 ML VIAL IV ONE ×2 (03:45)
[2019-11-29] MEDS: SODIUM CHLORIDE 0.9% 1,000 ML IV SCH (03:50)
[2019-11-29] MEDS ORDERED: ATROPINE SULFATE 1 MG/1 ML VIAL ONE (04:13)
[2019-11-29] MEDS ORDERED: FILGRASTIM(TBO) 480 MCG/0.8 ML SYRG SC SCH (10:00)
[2019-11-29] MEDS ORDERED: EPINEPHrine HCL 1 MG/10 ML SYRG IV ONE (11:29)
[2019-11-29] MEDS ORDERED: DOPamine 1600mCg/ml 400MG/250ml NSorD5 KIT/BAG IV ONE (11:29)
== END 2019-11-29 11:30 | disposition expired | DRG 871 ==
LOC: ER 09:55 → EDBD 09:55 → TELE 09:56 → ICU WEST 18:25
PROVIDERS: ADMIT Internal Medicine Cardiovascular Disease; ATTEND Internal Medicine Cardiovascular Disease
PROC: 5A1935Z Respiratory Ventilation, Less than 24 Consecutive Hours (ICD-10-PCS; principal; 2019-11-28)
PROC: 0BH17EZ Insertion of Endotracheal Airway into Trachea, Via Natural or Artificial Opening (ICD-10-PCS; 2019-11-28)
PROC: 5A09357 Assistance with Respiratory Ventilation, Less than 24 Consecutive Hours, Continuous Positive Airway Pressure (ICD-10-PCS; 2019-11-28)
PROC: 5A12012 Performance of Cardiac Output, Single, Manual (ICD-10-PCS; 2019-11-29)
PROC: 02HV33Z Insertion of Infusion Device into Superior Vena Cava, Percutaneous Approach (ICD-10-PCS; 2019-11-29)
DX: A41.9 Sepsis, unspecified organism (principal); E43 Unspecified severe protein-calorie malnutrition; J96.90 Respiratory failure, unspecified, unspecified whether with hypoxia or hypercapnia; J18.9 Pneumonia, unspecified organism; J44.0 Chronic obstructive pulmonary disease with (acute) lower respiratory infection; C34.12 Malignant neoplasm of upper lobe, left bronchus or lung; E87.2 Acidosis; R18.8 Other ascites; D75.89 Other specified diseases of blood and blood-forming organs; N18.3 Chronic kidney disease, stage 3 (moderate); I12.9 Hypertensive chronic kidney disease with stage 1 through stage 4 chronic kidney disease, or unspecified chronic kidney disease; E83.42 Hypomagnesemia; I25.10 Atherosclerotic heart disease of native coronary artery without angina pectoris; Z68.26 Body mass index [BMI] 26.0-26.9, adult; D70.1 Agranulocytosis secondary to cancer chemotherapy; K72.90 Hepatic failure, unspecified without coma; N40.0 Benign prostatic hyperplasia without lower urinary tract symptoms; R57.0 Cardiogenic shock; T45.1X5A Adverse effect of antineoplastic and immunosuppressive drugs, initial encounter; Y92.098 Other place in other non-institutional residence as the place of occurrence of the external cause; Z87.891 Personal history of nicotine dependence; Z82.61 Family history of arthritis; Z81.1 Family history of alcohol abuse and dependence; Z83.3 Family history of diabetes mellitus; Z84.89 Family history of other specified conditions; Z82.5 Family history of asthma and other chronic lower respiratory diseases; Z83.49 Family history of other endocrine, nutritional and metabolic diseases; Z81.8 Family history of other mental and behavioral disorders; Z83.511 Family history of glaucoma; Z83.42 Family history of familial hypercholesterolemia; Z82.0 Family history of epilepsy and other diseases of the nervous system; Z80.41 Family history of malignant neoplasm of ovary; Z80.3 Family history of malignant neoplasm of breast; Z80.42 Family history of malignant neoplasm of prostate; Z03.818 Encounter for observation for suspected exposure to other biological agents ruled out
CPT/HCPCS: 36415; 36600; 71045; 80048; 80053; 81001; 82805; 83605; 83735; 83880; 84443; 84484; 85025; 85379; 85610; 85730; 87040; 87070; 87077; 87081; 87186; 87205; 87804; 87880; 93005; 94002; 94640; 94660; 99291; C9113; G0378; J0330; J0461; J0696; J1447; J2250; J2543; J7060; P9047